=== PATIENT | male | born 1985 | race Caucasian/White ===

== ENCOUNTER 2017-08-03 10:01 | Inpatient (IN) | payer OTHER ==
[2017-08-03 10:05] VITALS: BMI 19.3
[2017-08-03 12:04] LABS: BASO % 0.2 % (0.0-2.0); HEMATOCRIT 45.5 % (35.0-51.0); LYMPH # 0.9 K/uL (1.0-4.3); LYMPH % 9.3 % (20.0-40.0); MEAN CELL VOLUME 88.8 fl (80.0-94.0); MEAN CORPUSCULAR HEMOGLOBIN 29.6 pg (27.0-31.0); MEAN CORPUSCULAR HGB CONC 33.3 g/dL (33.0-37.0); MEAN PLATELET VOLUME 9.4 fl (7.2-11.7); MONO # 0.6 K/uL (0.0-0.8); MONO % 6.2 % (0.0-10.0); NEUT # 7.8 K/uL (1.8-7.0); NEUT % 84.3 % (50.0-75.0); PLATELET COUNT 219 K/uL (130-400); RED CELL DISTRIBUTION WIDTH 12.8 % (11.5-14.5); WHITE BLOOD COUNT 9.3 K/uL (4.8-10.8)
[2017-08-03 12:14] LABS: ALCOHOL SERUM < 10 mg/dl (0-10); BLOOD UREA NITROGEN 16 mg/dl (9-20); CALCIUM 9.9 mg/dL (8.4-10.2); CARBON DIOXIDE 26 mmol/L (22-30); CHLORIDE 104 mmol/L (98-107); GFR AFRICAN-AMERICAN > 60; GLUCOSE,RANDOM 123 mg/dL (75-110); POTASSIUM 4.5 MMOL/L (3.6-5.0); SODIUM 144 mmol/l (132-148)
[2017-08-03 13:08] LABS: NEUTROPHIL 86 % (42-75); TOTAL CELLS COUNTED 100
--- NOTE | 2017-08-03 13:57 | ED PDOC ---
HPI: Altered Mental Status Time Seen by Provider: 08/03/17 10:35 Chief Complaint (Nursing): Altered Mental Status Chief Complaint (Provider): Altered Mental Status History Per: Patient History/Exam Limitations: None Onset/Duration Of Symptoms: Days (x2) Current Symptoms Are (Timing): Still Present Exacerbating Factor(s): Drug Use Pain Scale Rating Of: 0 Additional Complaint(s): Aurelio Maya is a 31 year old male, with a past medical history of schizophrenia and drug abuse, who was brought to the emergency department by EMS after he was found half naked on road, alert and oriented. Patient reports to have used Svetlana 2 days ago as well as cocaine. Patient states he wants to hurt himself but denies any injuries or falls. No further medical complaints. PMD: None provided. Past Medical History Reviewed: Historical Data, Nursing Documentation, Vital Signs Vital Signs: Last Vital Signs Temp 98 F 08/03/17 10:03 Pulse 78 08/03/17 13:26 Resp 19 08/03/17 13:26 BP 146/90 08/03/17 10:15 Pulse Ox 99 08/03/17 13:26 - Medical History PMH: Schizophrenia - Surgical History Surgical History: No Surg Hx - Family History Family History: States: Unknown Family Hx - Social History Current smoker - smoking cessation education provided: Yes (Heavy smoker >10 cigarettes daily) Alcohol: Occasional (few days a week) Drugs: Cocaine - Allergies Allergies/Adverse Reactions: Allergies Allergy/AdvReac Type Severity Reaction Status Date / Time No Known Allergies Allergy Verified 08/03/17 10:26 Review of Systems ROS Statement: Except As Marked, All Systems Reviewed And Found Negative Constitutional: Negative for: Other (trauma, falls) Neurological: Positive for: Altered Mental Status Physical Exam - Reviewed Nursing Documentation Reviewed: Yes Vital Signs Reviewed: Yes - Physical Exam Appears: Positive for: Non-toxic, No Acute Distress Head Exam: Positive for: ATRAUMATIC, NORMAL INSPECTION Skin: Positive for: Normal Color, Warm, Dry Eye Exam: Positive for: Normal appearance, EOMI, PERRL Neck: Positive for: Painless ROM, Supple Cardiovascular/Chest: Positive for: Regular Rate, Rhythm Respiratory: Positive for: Normal Breath Sounds. Negative for: Respiratory Distress Extremity: Positive for: Normal ROM. Negative for: Deformity, Swelling Neurologic/Psych: Positive for: Alert, Oriented, Mood/Affect (flat affect) Comments: Some superficial abrasions on face, and scratches on skin - Laboratory Results Result Diagrams: 08/03/17 11:58 08/04/17 05:00 - ECG O2 Sat by Pulse Oximetry: 99 (RA) Pulse Ox Interpretation: Normal Medical Decision Making Medical Decision Making: Initial Impression: substance abuse Initial Plan: --Head w/o contrast [CT] --Acetaminophen --Alcohol serum --Basic Metabolic Panel --Drug screen, urine --Salicylate --CBC w/ differential --1:1 Observation --Urinalysis --reevaluation 13:44 -Labs reviewed. 15:[address] FINDINGS: HEMORRHAGE: No intracranial hemorrhage. BRAIN: No mass effect or edema. No atrophy or chronic microvascular ischemic changes. VENTRICLES: Unremarkable. No hydrocephalus. CALVARIUM: Unremarkable. PARANASAL SINUSES: Unremarkable as visualized. No significant inflammatory changes. MASTOID AIR CELLS: Unremarkable as visualized. No inflammatory changes. OTHER FINDINGS: None. IMPRESSION: No acute intracranial abnormalities. No significant findings to account for the clinical presentation. Limitations of the current examination: Patient related motion induced artifact. 15:29 -Waiting on urine 16:08 Urine toxicology report states patient positive for cocaine metabols. Crisis team informed of results and patient is cleared to be evaluated by crisis team. 1700 Patient signed out to Dr. Payan pending crisis evaluation. Scribe Attestation: Documented by Rohan Tran, acting as a scribe for Chandni Boyd MD Provider Scribe Attestation: All medical record entries made by the Scribe were at my direction and personally dictated by me. I have reviewed the chart and agree that the record accurately reflects my personal performance of the history, physical exam, medical decision making, and the department course for this patient. I have also personally directed, reviewed, and agree with the discharge instructions and disposition. Disposition - Clinical Impression Clinical Impression: Polysubstance abuse, Substance-induced psychotic disorder, Tachycardia - Patient ED Disposition Is Patient to be Admitted: Transfer of Care - Disposition Disposition: Transfer of Care Disposition Time: 17:00 Condition: GUARDED Patient Signed Over To: Julissa Payan Handoff Comments: crisis evaluation
--- NOTE | 2017-08-03 15:09 | CT ---
PROCEDURE: CT HEAD WITHOUT CONTRAST. HISTORY: possible fall COMPARISON: None available. TECHNIQUE: Axial computed tomography images were obtained through the head/brain without intravenous contrast. Coronal and sagittal reconstructed images. Radiation dose: Total exam DLP = 1404.72 mGy-cm. This CT exam was performed using one or more of the following dose reduction techniques: Automated exposure control, adjustment of the mA and/or kV according to patient size, and/or use of iterative reconstruction technique. FINDINGS: HEMORRHAGE: No intracranial hemorrhage. BRAIN: No mass effect or edema. No atrophy or chronic microvascular ischemic changes. VENTRICLES: Unremarkable. No hydrocephalus. CALVARIUM: Unremarkable. PARANASAL SINUSES: Unremarkable as visualized. No significant inflammatory changes. MASTOID AIR CELLS: Unremarkable as visualized. No inflammatory changes. OTHER FINDINGS: None. IMPRESSION: No acute intracranial abnormalities. No significant findings to account for the clinical presentation. Limitations of the current examination: Patient related motion induced artifact.
[2017-08-03 15:58] LABS: RBC URINE 3 /hpf (0-3); URINE BILIRUBIN NEGATIVE (NEGATIVE); URINE BLOOD NEGATIVE (NEGATIVE); URINE COLOR YELLOW (YELLOW); URINE GLUCOSE (UA) NEG (Normal); URINE KETONE 20 mg/dL (NEGATIVE); URINE LEUKOCYTE ESTERASE NEG Leu/uL (Negative); URINE PROTEIN 100 mg/dL (NEGATIVE); URINE UROBILINOGEN 0.2-1.0 mg/dL (0.2-1.0); WBC URINE 1 /hpf (0-5)
--- NOTE | 2017-08-03 17:03 | ED PDOC ---
- Laboratory Results Result Diagrams: 08/03/17 11:58 08/04/17 05:00 - ECG O2 Sat by Pulse Oximetry: 99 (RA) Pulse Ox Interpretation: Normal Medical Decision Making Medical Decision Making: Receiving sign out: Patient signed out to me by Dr. Boyd at 1700 pending crisis evaluation. 1900 Evaluated by Crisis and given resources for addiction He converses lucidly and is alert and oriented x 2. However he continues to have tachycardia and involuntary movements of the face, as well as some pupil dilatation, possibly still intoxicated. Admits to feeling dehydrated. 2100 Pt still unsteady with intoxication. Persistently tachycardic. Continued IVF 2330 Persistent unsteady gait with tachycardia. DW Dr Milligan for hospitalization for prolonged intoxication and multisubstance abuse. Scribe Attestation: Documented by Teressa Han acting as a scribe for Julissa Payan MD. Provider Attestation: All medical record entries made by the Scribe were at my direction and personally dictated by me. I have reviewed the chart and agree that the record accurately reflects my personal performance of the history, physical exam, medical decision making, and the department course for this patient. I have also personally directed, reviewed, and agree with the discharge instructions and disposition. Disposition - Clinical Impression Clinical Impression: Polysubstance abuse, Substance-induced psychotic disorder, Tachycardia - POA Present On Arrival: Falls Or Trauma (reick) - Disposition Disposition: Hospitalized as Observation Patient Disposition Time: 23:30 Condition: GUARDED Progress Note - Review of Symptoms Events since last encounter: Time: 1900 Patient to be discharged home with diagnosis of substance abuse per Dr. Preciado.
[2017-08-03] MEDS ORDERED: DiphenhydrAMINE 50 mg/ml Inj IVP STA (19:11)
[2017-08-03] MEDS ORDERED: Sodium Chloride 0.9% 1,000 ML IV STA (19:11)
[2017-08-03] MEDS ORDERED: DiphenhydrAMINE 50 mg/ml Inj ONE (19:37)
--- NOTE | 2017-08-03 23:48 | CP.PCM.HP ---
History of Present Illness - History of Present Illness History of Present Illness: PCP: None Chief Complaint: AMS The patient is seen and examined in the ED HPI: The hx is obtained from the patient and the medical records. This is 31 years old male with past medical Hx of Schizophrenia and drug abuse, brought to the ED by the EMS after he was found half naked on the streets. In the ED he was alert, oriented by 2, referring that 2 days prior, he had taken Svetlana the drug, 'Methylenedioxymethamphetamine' and Cocaine. He also that he wanted to hurt himself. In the ED he was noted to have involuntary chewing and lip smacking with some distortions of the face. he was also having intermittent episodes of tachycardia then back to normal heart rate. He is being admitted for further observation and Telemetry monitoring. PMH: Schezinophrenia PSH: Tendon repair of the right hand SH: Cocaine and Svetlana use; Heavy smoker; Alcohol use FH: States: Unknown Family Hx Allergies: NKDA Medication: None Present on Admission - Present on Admission Any Indicators Present on Admission: No History of DVT/PE: No History of Uncontrolled Diabetes: No Urinary Catheter: No Decubitus Ulcer Present: No Review of Systems - Review of Systems Review of Systems: Review of systems is unobtainable because the patient still cannot remember exactly what happened. Past Patient History - Past Medical History & Family History Past Medical History?: No - Past Social History Smoking Status: Heavy Smoker > 10 Cigarettes Daily Chewing Tobacco Use: No Cigar Use: No Alcohol: Occasional (few days a week) Drugs: Cocaine - CARDIAC Hx Cardiac Disorders: No Hx Hypertension: No - PULMONARY Hx Respiratory Disorders: No Hx Tuberculosis: No - NEUROLOGICAL HX Cerebrovascular Accident: No Hx Seizures: No - HEENT Hx HEENT Problems: No - RENAL Hx Chronic Kidney Disease: No Hx Kidney Stones: No - ENDOCRINE/METABOLIC Hx Endocrine Disorders: No - HEMATOLOGICAL/ONCOLOGICAL Hx Blood Disorders: No Hx Cancer: No Hx Human Immunodeficiency Virus (HIV): No - INTEGUMENTARY Hx Dermatological Problems: No - MUSCULOSKELETAL/RHEUMATOLOGICAL Hx Musculoskeletal Disorders: No - GASTROINTESTINAL Hx Gastrointestinal Disorders: No - GENITOURINARY/GYNECOLOGICAL Hx Sexually Transmitted Disorders: No - PSYCHIATRIC Hx Schizophrenia: Yes - SURGICAL HISTORY Other/Comment: Surgery to the left hand with tendon repair - ANESTHESIA Hx Anesthesia: No Meds Allergies/Adverse Reactions: Allergies Allergy/AdvReac Type Severity Reaction Status Date / Time No Known Allergies Allergy Verified 08/03/17 10:26 Physical Exam - Constitutional Appears: No Acute Distress - Head Exam Head Exam: ATRAUMATIC, NORMAL INSPECTION, NORMOCEPHALIC - Eye Exam Eye Exam: Conjunctival injection, EOMI, PERRL Pupil Exam: NORMAL ACCOMODATION, PERRL - ENT Exam ENT Exam: Mucous Membranes Dry, Normal Exam, Normal External Ear Exam - Neck Exam Neck exam: Positive for: Full Rom. Negative for: Lymphadenopathy, Tenderness - Respiratory Exam Respiratory Exam: Clear to Auscultation Bilateral. absent: Rales, Rhonchi, Wheezes - Cardiovascular Exam Cardiovascular Exam: REGULAR RHYTHM, RRR, +S1, +S2 - GI/Abdominal Exam GI & Abdominal Exam: Normal Bowel Sounds, Soft. absent: Mass, Organomegaly, Tenderness - Rectal Exam Rectal Exam: Deferred - Extremities Exam Extremities exam: Positive for: calf tenderness. Negative for: joint swelling Additional comments: Bruises to both feet and distal legs - Back Exam Back exam: NORMAL INSPECTION. absent: CVA tenderness (L), CVA tenderness (R) - Neurological Exam Neurological exam: Alert, CN II-XII Intact, Reflexes Normal - Psychiatric Exam Psychiatric exam: Flat Affect - Skin Skin Exam: Dry, Intact, Normal Color, Warm Results - Vital Signs Recent Vital Signs: Last Vital Signs Temp 99.2 F 08/03/17 23:42 Pulse 89 08/03/17 23:42 Resp 26 H 08/03/17 23:42 BP 134/80 08/03/17 23:42 Pulse Ox 99 08/03/17 23:42 - Labs Result Diagrams: 08/03/17 11:58 08/03/17 23:26 Labs: Laboratory Results - last 24 hr 08/03/17 08/03/17 08/03/17 11:58 11:58 11:58 WBC 9.3 RBC 5.12 Hgb 15.1 Hct 45.5 MCV 88.8 MCH 29.6 MCHC 33.3 RDW 12.8 Plt Count 219 MPV 9.4 Neut % (Auto) 84.3 H Lymph % (Auto) 9.3 L [place] % (Auto) 6.2 Eos % (Auto) 0.0 Baso % (Auto) 0.2 Neut # 7.8 H Lymph # 0.9 L [place] # 0.6 Eos # 0.0 Baso # 0.0 Neutrophils % (Manual) 86 H Band Neutrophils % 1 Lymphocytes % (Manual) 8 L Monocytes % (Manual) 5 Platelet Estimate Normal RBC Morphology Normal Sodium 144 Potassium 4.5 Chloride 104 Carbon Dioxide 26 Anion Gap 19 BUN 16 Creatinine 0.9 Est GFR ( Amer) > 60 Est GFR (Non-Af Amer) > 60 Random Glucose 123 H Calcium 9.9 Urine Color Urine Clarity Urine pH Ur Specific [place] Urine Protein Urine Glucose (UA) Urine Ketones Urine Blood Urine Nitrate Urine Bilirubin Urine Urobilinogen Ur Leukocyte Esterase Urine RBC (Auto) Urine Microscopic WBC Salicylates < 1.0 Urine Opiates Screen Urine Methadone Screen Acetaminophen < 10.0 L Ur Barbiturates Screen Ur Phencyclidine Scrn Ur Amphetamines Screen U Benzodiazepines Scrn U Oth Cocaine Metabols U Cannabinoids Screen Alcohol, Quantitative < 10 08/03/17 08/03/17 13:52 14:52 WBC RBC Hgb Hct MCV MCH MCHC RDW Plt Count MPV Neut % (Auto) Lymph % (Auto) [place] % (Auto) Eos % (Auto) Baso % (Auto) Neut # Lymph # [place] # Eos # Baso # Neutrophils % (Manual) Band Neutrophils % Lymphocytes % (Manual) Monocytes % (Manual) Platelet Estimate RBC Morphology Sodium Potassium Chloride Carbon Dioxide Anion Gap BUN Creatinine Est GFR ( Amer) Est GFR (Non-Af Amer) Random Glucose Calcium Urine Color Yellow Urine Clarity Clear Urine pH 6.0 Ur Specific [place] 1.031 H Urine Protein 100 Urine Glucose (UA) Neg Urine Ketones 20 Urine Blood Negative Urine Nitrate Negative Urine Bilirubin Negative Urine Urobilinogen 0.2-1.0 Ur Leukocyte Esterase Neg Urine RBC (Auto) 3 Urine Microscopic WBC 1 Salicylates Urine Opiates Screen Negative Urine Methadone Screen Negative Acetaminophen Ur Barbiturates Screen Negative Ur Phencyclidine Scrn Negative Ur Amphetamines Screen Negative U Benzodiazepines Scrn Negative U Oth Cocaine Metabols Positive H U Cannabinoids Screen Negative Alcohol, Quantitative - Imaging and Cardiology CT scan - Head Additional comment: No Acute intracraneal abnormality Assessment & Plan - Assessment and Plan (Free Text) Assessment: #. AMS #. Polysubstance abuse #. Tachycardia #. Hypokalemia Plan: 31 years old male with past medical Hx of Schizophrenia and drug abuse, brought to the ED by the EMS after he was found half naked on the streets. In the ED he was alert, oriented by 2, referring that 2 days prior, he had taken Svetlana the drug, 'Methylenedioxymethamphetamine' and Cocaine. In The ED he had some Involuntary facial movenents and distortion. He was also having intermittent episodes of tachycardia. #. AMS secondary to Toxic Encephalopathy due to the Drug use - CT head negative for blood - Neuro checks q4H #. Polysubstance abuse - Ativan for Agitation #. Intermittent Tachycardia - Obsrve in telemetry - Cardiac Monitoring #. Hypokalemia - Repleat Potassium #. Stress Ulcer Prophylaxis with Pepcid #. DVT prophylaxis with Lovenox #. Code Status: Full - Date & Time Date: 08/03/17 Time: 23:47
[2017-08-04 00:12] LABS: ALB/GLOB RATIO 1.4 (1.0-2.1); ALKALINE PHOSPHATASE 64 U/L (38-126); ALT/SGPT 41 U/L (21-72); AST/SGOT 31 U/L (17-59); BILIRUBIN,TOTAL 0.6 mg/dl (0.2-1.3); BLOOD UREA NITROGEN 15 mg/dl (9-20); CALCIUM 8.8 mg/dL (8.4-10.2); CARBON DIOXIDE 28 mmol/L (22-30); CHLORIDE 106 mmol/L (98-107); GFR AFRICAN-AMERICAN > 60; GLUCOSE,RANDOM 156 mg/dL (75-110); POTASSIUM 3.4 MMOL/L (3.6-5.0); SODIUM 140 mmol/l (132-148); TOTAL PROTEIN 7.2 G/DL (6.3-8.2)
[2017-08-04] MEDS ORDERED: Multivitamin (MVI) 10 ML, Thiamine 100 MG in Dextrose 5%/0.45% NS 1,000 ML IV ONE (01:23)
[2017-08-04] MEDS ORDERED: Potassium Chloride 20 mEq ER Tab PO ONE (01:26)
[2017-08-04 06:40] LABS: BLOOD UREA NITROGEN 12 mg/dl (9-20); CALCIUM 8.6 mg/dL (8.4-10.2); CARBON DIOXIDE 21 mmol/L (22-30); CHLORIDE 108 mmol/L (98-107); GFR AFRICAN-AMERICAN > 60; GLUCOSE,RANDOM 102 mg/dL (75-110); POTASSIUM 4.2 MMOL/L (3.6-5.0); SODIUM 140 mmol/l (132-148)
[2017-08-04] MEDS: Enoxaparin 40 mg Syringe SC SCH (09:10)
--- NOTE | 2017-08-04 11:33 | CP.PCM.CON ---
History of Present Illness - History of Present Illness History of Present Illness: psychiatry consult requested, pt brought to ER by police as he was found on the street naked and exhibiting disorganized behavior, in ER pt was found tachycardiac and having abnormal facial movements so was admitted to telemetry for observation pt on evaluation not reliable in providing history as his thought process continues to be disorganized with thought blocking, and paranoid behavior pt on evaluation stated that he recently has been using cocaine cannabis, alcohol and Svetlana { amphetamine} almost daily but unable to specify the amounts indicated that he is depressed and having suicidal thoughts since 2016 when he broke up with his girfriend, pt stated he continues to have active suicidal thoughts, by cutting his wrist, reported one previous suicidal attempt by cutting his wrist at age [age], he was nivia in college and was admitted then to psychiatric hospital in [place], he denied any further psychiatric treatment or follow up pt has been in [place] between 2007 and 2015 as per his reporte and indicated that he suffers from insomnia and flash backs since his return Past Patient History - Past Medical History & Family History Past Medical History?: No - Past Social History Alcohol: Occasional (few days a week) Drugs: Cocaine - CARDIAC Hx Cardiac Disorders: No Hx Hypertension: No - PULMONARY Hx Respiratory Disorders: No Hx Tuberculosis: No - NEUROLOGICAL HX Cerebrovascular Accident: No Hx Seizures: No - HEENT Hx HEENT Problems: No - RENAL Hx Chronic Kidney Disease: No Hx Kidney Stones: No - ENDOCRINE/METABOLIC Hx Endocrine Disorders: No - HEMATOLOGICAL/ONCOLOGICAL Hx Blood Disorders: No Hx Cancer: No Hx Human Immunodeficiency Virus (HIV): No - INTEGUMENTARY Hx Dermatological Problems: No - MUSCULOSKELETAL/RHEUMATOLOGICAL Hx Musculoskeletal Disorders: No Hx Falls: Yes - GASTROINTESTINAL Hx Gastrointestinal Disorders: No - GENITOURINARY/GYNECOLOGICAL Hx Sexually Transmitted Disorders: No - PSYCHIATRIC Hx Schizophrenia: Yes - SURGICAL HISTORY Other/Comment: Surgery to the left hand with tendon repair - ANESTHESIA Hx Anesthesia: No Hx Anesthesia Reactions: No Hx Malignant Hyperthermia: No Has any member of the family had a problem w/ anesthesia?: No Meds Allergies/Adverse Reactions: Allergies Allergy/AdvReac Type Severity Reaction Status Date / Time No Known Allergies Allergy Verified 08/03/17 10:26 - Medications Medications: Current Medications Enoxaparin Sodium (Lovenox) 40 mg SC DAILY IHSAN PRN Reason: Protocol Last Admin: 08/04/17 09:10 Dose: 40 mg Lorazepam (Ativan) 0.5 mg IVP Q3H PRN PRN Reason: Agitation Physical Exam - Psychiatric Exam Additional comments: pt on evaluation dressed in a hospital gown, anxious, restless, hyperactive, guarded , paranoid, partial eye contact, speech not goal directed and underproductive , disorganized thought process, paranoid, presenting with thought blocking, appears internally preoccupied but denied command hallucinations, when asked about suicidae pt reported that he took as much as he can of cocine and MOLY in atrial to end it all, he does not remember how he ended up in the hospital continues to have suicidal thoughts with plan to cut his wrist, impaired insight and judgement, awake at current mental status oriented to person only Results - Vital Signs Recent Vital Signs: Last Vital Signs Temp 98.3 F 08/04/17 07:55 Pulse 82 08/04/17 07:55 Resp 18 08/04/17 07:55 BP 130/71 08/04/17 07:55 Pulse Ox 99 08/04/17 11:04 - Labs Result Diagrams: 08/03/17 11:58 08/04/17 05:00 Labs: Laboratory Results - last 24 hr 08/03/17 08/03/17 08/03/17 11:58 11:58 11:58 WBC 9.3 RBC 5.12 Hgb 15.1 Hct 45.5 MCV 88.8 MCH 29.6 MCHC 33.3 RDW 12.8 Plt Count 219 MPV 9.4 Neut % (Auto) 84.3 H Lymph % (Auto) 9.3 L [place] % (Auto) 6.2 Eos % (Auto) 0.0 Baso % (Auto) 0.2 Neut # 7.8 H Lymph # 0.9 L [place] # 0.6 Eos # 0.0 Baso # 0.0 Neutrophils % (Manual) 86 H Band Neutrophils % 1 Lymphocytes % (Manual) 8 L Monocytes % (Manual) 5 Platelet Estimate Normal RBC Morphology Normal Sodium 144 Potassium 4.5 Chloride 104 Carbon Dioxide 26 Anion Gap 19 BUN 16 Creatinine 0.9 Est GFR ( Amer) > 60 Est GFR (Non-Af Amer) > 60 Random Glucose 123 H Calcium 9.9 Phosphorus Magnesium Total Bilirubin AST ALT Alkaline Phosphatase Total Creatine Kinase Total Protein Albumin Globulin Albumin/Globulin Ratio Urine Color Urine Clarity Urine pH Ur Specific [place] Urine Protein Urine Glucose (UA) Urine Ketones Urine Blood Urine Nitrate Urine Bilirubin Urine Urobilinogen Ur Leukocyte Esterase Urine RBC (Auto) Urine Microscopic WBC Salicylates < 1.0 Urine Opiates Screen Urine Methadone Screen Acetaminophen < 10.0 L Ur Barbiturates Screen Ur Phencyclidine Scrn Ur Amphetamines Screen U Benzodiazepines Scrn U Oth Cocaine Metabols U Cannabinoids Screen Alcohol, Quantitative < 10 08/03/17 08/03/17 08/03/17 13:52 14:52 23:26 WBC RBC Hgb Hct MCV MCH MCHC RDW Plt Count MPV Neut % (Auto) Lymph % (Auto) [place] % (Auto) Eos % (Auto) Baso % (Auto) Neut # Lymph # [place] # Eos # Baso # Neutrophils % (Manual) Band Neutrophils % Lymphocytes % (Manual) Monocytes % (Manual) Platelet Estimate RBC Morphology Sodium 140 Potassium 3.4 L Chloride 106 Carbon Dioxide 28 Anion Gap 9 L BUN 15 Creatinine 0.9 Est GFR ( Amer) > 60 Est GFR (Non-Af Amer) > 60 Random Glucose 156 H Calcium 8.8 Phosphorus 3.0 Magnesium 2.0 Total Bilirubin 0.6 AST 31 ALT 41 Alkaline Phosphatase 64 Total Creatine Kinase 213 H Total Protein 7.2 Albumin 4.2 Globulin 3.0 Albumin/Globulin Ratio 1.4 Urine Color Yellow Urine Clarity Clear Urine pH 6.0 Ur Specific [place] 1.031 H Urine Protein 100 Urine Glucose (UA) Neg Urine Ketones 20 Urine Blood Negative Urine Nitrate Negative Urine Bilirubin Negative Urine Urobilinogen 0.2-1.0 Ur Leukocyte Esterase Neg Urine RBC (Auto) 3 Urine Microscopic WBC 1 Salicylates Urine Opiates Screen Negative Urine Methadone Screen Negative Acetaminophen Ur Barbiturates Screen Negative Ur Phencyclidine Scrn Negative Ur Amphetamines Screen Negative U Benzodiazepines Scrn Negative U Oth Cocaine Metabols Positive H U Cannabinoids Screen Negative Alcohol, Quantitative 08/04/17 05:00 WBC RBC Hgb Hct MCV MCH MCHC RDW Plt Count MPV Neut % (Auto) Lymph % (Auto) [place] % (Auto) Eos % (Auto) Baso % (Auto) Neut # Lymph # [place] # Eos # Baso # Neutrophils % (Manual) Band Neutrophils % Lymphocytes % (Manual) Monocytes % (Manual) Platelet Estimate RBC Morphology Sodium 140 Potassium 4.2 Chloride 108 H Carbon Dioxide 21 L Anion Gap 15 BUN 12 Creatinine 0.8 Est GFR ( Amer) > 60 Est GFR (Non-Af Amer) > 60 Random Glucose 102 Calcium 8.6 Phosphorus Magnesium Total Bilirubin AST ALT Alkaline Phosphatase Total Creatine Kinase Total Protein Albumin Globulin Albumin/Globulin Ratio Urine Color Urine Clarity Urine pH Ur Specific [place] Urine Protein Urine Glucose (UA) Urine Ketones Urine Blood Urine Nitrate Urine Bilirubin Urine Urobilinogen Ur Leukocyte Esterase Urine RBC (Auto) Urine Microscopic WBC Salicylates Urine Opiates Screen Urine Methadone Screen Acetaminophen Ur Barbiturates Screen Ur Phencyclidine Scrn Ur Amphetamines Screen U Benzodiazepines Scrn U Oth Cocaine Metabols U Cannabinoids Screen Alcohol, Quantitative Assessment & Plan - Assessment and Plan (Free Text) 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
--- NOTE | 2017-08-04 18:01 | CP.PCM.PN ---
Subjective - Date & Time of Evaluation Date of Evaluation: 08/04/17 Time of Evaluation: 10:00 - Subjective Subjective: Patient seen and examined bedside. Answering questions. AAOx3 . Gives history of drug abuse Svetlana and Cocaine almost daily , as much as he can get his hands on .Admits to feeling depressed and suicidal at times. Denies any pain or discomfort Hemodynamically stable with so me repetitive lip chewing movements Objective - Vital Signs/Intake and Output Vital Signs (last 24 hours): Temp Pulse Resp BP Pulse Ox 98.4 F 78 14 137/73 97 08/04/17 16:10 08/04/17 16:10 08/04/17 16:10 08/04/17 16:10 08/04/17 16:10 - Medications Medications: Current Medications Enoxaparin Sodium (Lovenox) 40 mg SC DAILY IHSAN PRN Reason: Protocol Last Admin: 08/04/17 09:10 Dose: 40 mg Lorazepam (Ativan) 0.5 mg IVP Q3H PRN PRN Reason: Agitation Risperidone (Risperdal Tab) 1 mg PO DAILY IHSAN - Labs Labs: 08/03/17 11:58 08/04/17 05:00 - Constitutional Appears: Non-toxic, No Acute Distress - Head Exam Head Exam: NORMAL INSPECTION, NORMOCEPHALIC Additional comments: left just below eyebrow abrasion - Eye Exam Eye Exam: EOMI, Normal appearance, PERRL Pupil Exam: NORMAL ACCOMODATION - ENT Exam ENT Exam: Mucous Membranes Moist, Normal Exam - Neck Exam Neck Exam: Full ROM, Normal Inspection - Respiratory Exam Respiratory Exam: Clear to Ausculation Bilateral, NORMAL BREATHING PATTERN. absent: Rales, Rhonchi, Wheezes, Respiratory Distress - Cardiovascular Exam Cardiovascular Exam: REGULAR RHYTHM, RRR, +S1, +S2. absent: JVD - GI/Abdominal Exam GI & Abdominal Exam: Soft, Normal Bowel Sounds. absent: Distended, Guarding, Tenderness, Rebound - Rectal Exam Rectal Exam: Deferred - Extremities Exam Extremities Exam: Full ROM, Normal Capillary Refill, Normal Inspection. absent : Pedal Edema - Back Exam Back Exam: NORMAL INSPECTION - Neurological Exam Neurological Exam: Alert, Awake, Oriented x3 - Psychiatric Exam Psychiatric exam: Anxious, Flat Affect - Skin Skin Exam: Dry, Normal Color Additional comments: left leg below knee skin abrasions Assessment and Plan - Assessment and Plan (Free Text) Assessment: 31 years old male with past medical Hx of Schizophrenia and drug abuse, brought to the ED by the EMS after he was found half naked on the streets. In the ED he was alert, oriented x2 ,referring that 2 days prior, he had taken Svetlana the drug , 'Methylenedioxymethamphetamine' and Cocaine. In The ED he had some Involuntary facial movements and distortion. He was also having intermittent episodes of tachycardia.He admitted t being suicidal . Patient was placed under observation in telemetry , started on IVF and placed on 1 : 1 for safety. Psychiatry was consulted. 1. AMS secondary to Toxic Encephalopathy due to the Drug use CT head negative for acute pathology Drug screen positive for cocaine and amphetamine at present AAOx3 hemodynamically stable, afebrile He is medically stable for psychiatric admision 2.Polysubstance abuse Svetlana and cocaine admits to having a problem and would like help psych consulted Ativan for Agitation patient will need to be stabilized psychiatrically Started Risperdal as per psych recommendations Referred for involuntary admission 3. Suicidal/ psychotic psych consulted recommended involuntary psych admission 4. Intermittent Tachycardia Observed in telemetry no arrythmisa resolved 5. Hypokalemia Repleted Potassium 6. Stress Ulcer Prophylaxis Pepcid 7. DVT prophylaxis Lovenox
[2017-08-05 05:31] LABS: HEMATOCRIT 40.3 % (35.0-51.0); MEAN CORPUSCULAR HEMOGLOBIN 29.7 pg (27.0-31.0); MEAN CORPUSCULAR HGB CONC 33.4 g/dL (33.0-37.0); RED CELL DISTRIBUTION WIDTH 12.6 % (11.5-14.5)
[2017-08-05 06:27] LABS: BLOOD UREA NITROGEN 13 mg/dl (9-20); CALCIUM 9.2 mg/dL (8.4-10.2); CARBON DIOXIDE 25 mmol/L (22-30); CHLORIDE 106 mmol/L (98-107); GFR AFRICAN-AMERICAN > 60; GLUCOSE,RANDOM 96 mg/dL (75-110); POTASSIUM 3.9 MMOL/L (3.6-5.0); SODIUM 141 mmol/l (132-148)
--- NOTE | 2017-08-05 08:24 | RAD ---
HISTORY: Pre transfer to [facility] [place] Psych unit COMPARISON: No prior. FINDINGS: LUNGS: No active pulmonary disease. PLEURA: No significant pleural effusion identified, no pneumothorax apparent. CARDIOVASCULAR: Normal. OSSEOUS STRUCTURES: No significant abnormalities. VISUALIZED UPPER ABDOMEN: Normal. OTHER FINDINGS: None. IMPRESSION: No acute cardiopulmonary disease appreciated.
[2017-08-05] MEDS: Enoxaparin 40 mg Syringe SC SCH (09:51)
--- NOTE | 2017-08-05 10:46 | CP.PCM.PN ---
Subjective - Date & Time of Evaluation Date of Evaluation: 08/05/17 Time of Evaluation: 10:46 - Subjective Subjective: pt mother at bedside states he is more lucid and coherent than yesterday no abnormal movements of limbs or mouth on exam HD stable NAD awaiting bed at [facility] [place] Objective - Vital Signs/Intake and Output Vital Signs (last 24 hours): Temp Pulse Resp BP Pulse Ox 97.2 F L 62 18 107/71 96 08/05/17 08:00 08/05/17 08:00 08/05/17 08:00 08/05/17 08:00 08/05/17 08:00 - Medications Medications: Current Medications Enoxaparin Sodium (Lovenox) 40 mg SC DAILY IHSAN PRN Reason: Protocol Last Admin: 08/05/17 09:51 Dose: 40 mg Lorazepam (Ativan) 0.5 mg IVP Q3H PRN PRN Reason: Agitation Risperidone (Risperdal Tab) 1 mg PO DAILY IHSAN Last Admin: 08/05/17 09:51 Dose: 1 mg - Labs Labs: 08/05/17 04:30 08/05/17 04:30 - Constitutional Appears: Non-toxic, No Acute Distress - Head Exam Head Exam: ATRAUMATIC, NORMOCEPHALIC - Eye Exam Eye Exam: EOMI, Normal appearance, PERRL - ENT Exam ENT Exam: Mucous Membranes Moist, Normal Oropharynx - Neck Exam Neck Exam: Full ROM, Normal Inspection - Respiratory Exam Respiratory Exam: Clear to Ausculation Bilateral, NORMAL BREATHING PATTERN - Cardiovascular Exam Cardiovascular Exam: RRR, +S1, +S2 - GI/Abdominal Exam GI & Abdominal Exam: Soft, Normal Bowel Sounds - Extremities Exam Extremities Exam: Normal Capillary Refill. absent: Calf Tenderness - Back Exam Back Exam: absent: CVA tenderness (L), CVA tenderness (R) - Neurological Exam Neurological Exam: Alert, Awake - Psychiatric Exam Psychiatric exam: Normal Affect, Normal Mood - Skin Skin Exam: Dry, Warm Assessment and Plan - Assessment and Plan (Free Text) Plan: 31 years old male with past medical Hx of Schizophrenia and drug abuse, brought to the ED by the EMS after he was found half naked on the streets. In the ED he was alert, oriented x2 ,referring that 2 days prior, he had taken Svetlana the drug , 'Methylenedioxymethamphetamine' and Cocaine. In The ED he had some Involuntary facial movements and distortion. He was also having intermittent episodes of tachycardia.He admitted t being suicidal . Patient was placed under observation in telemetry , started on IVF and placed on 1 : 1 for safety. Psychiatry was consulted. Awaiting bed at [facility] for involuntary admission 1. AMS secondary to Toxic Encephalopathy due to the Drug use CT head negative for acute pathology Drug screen positive for cocaine and amphetamine at present AAOx3 hemodynamically stable, afebrile He is medically stable for psychiatric admision 2.Polysubstance abuse Svetlana and cocaine admits to having a problem and would like help [facility] patient will need to be stabilized psychiatrically Started Risperdal as per psych recommendations Referred for involuntary admission 3. Suicidal/ psychotic psych consulted recommended involuntary psych admission 4. Intermittent Tachycardia Observed in telemetry no arrythmisa resolved 5. Hypokalemia Repleted Potassium 6. Stress Ulcer Prophylaxis Pepcid 7. DVT prophylaxis Lovenox
--- NOTE | 2017-08-05 18:21 | CARD ---
APPROVED REPORT EKG Measurement Heart [id number] <Conclusion> Normal sinus rhythm Early repolarization Normal ECG
[2017-08-06 00:30] VITALS: BP 111/66; PULSE 60; RESP 18; TEMP 97.4; O2SAT 99
--- NOTE | 2017-08-06 08:20 | CP.PCM.DIS ---
Provider - Provider Date of Admission: 08/05/17 14:14 Attending physician: Prashant Milligan Time Spent in preparation of Discharge (in minutes): 30 Diagnosis - Discharge Diagnosis (1) Polysubstance abuse Status: Acute Hospital Course - Lab Results Lab Results: Most Recent Lab Values WBC 7.0 K/uL (4.8-10.8) 08/05/17 04:30 RBC 4.53 Mil/uL (4.40-5.90) 08/05/17 04:30 Hgb 13.4 g/dL (12.0-18.0) 08/05/17 04:30 Hct 40.3 % (35.0-51.0) 08/05/17 04:30 MCV 89.0 fl (80.0-94.0) 08/05/17 04:30 MCH 29.7 pg (27.0-31.0) 08/05/17 04:30 MCHC 33.4 g/dL (33.0-37.0) 08/05/17 04:30 RDW 12.6 % (11.5-14.5) 08/05/17 04:30 Plt Count 180 K/uL (130-400) 08/05/17 04:30 MPV 9.4 fl (7.2-11.7) 08/03/17 11:58 Neut % (Auto) 84.3 % (50.0-75.0) H 08/03/17 11:58 Lymph % (Auto) 9.3 % (20.0-40.0) L 08/03/17 11:58 [place] % (Auto) 6.2 % (0.0-10.0) 08/03/17 11:58 Eos % (Auto) 0.0 % (0.0-4.0) 08/03/17 11:58 Baso % (Auto) 0.2 % (0.0-2.0) 08/03/17 11:58 Neut # 7.8 K/uL (1.8-7.0) H 08/03/17 11:58 Lymph # 0.9 K/uL (1.0-4.3) L 08/03/17 11:58 [place] # 0.6 K/uL (0.0-0.8) 08/03/17 11:58 Eos # 0.0 K/uL (0.0-0.7) 08/03/17 11:58 Baso # 0.0 K/uL (0.0-0.2) 08/03/17 11:58 Neutrophils % (Manual) 86 % (42-75) H 08/03/17 11:58 Band Neutrophils % 1 % (0-2) 08/03/17 11:58 Lymphocytes % (Manual) 8 % (20-50) L 08/03/17 11:58 Monocytes % (Manual) 5 % (0-10) 08/03/17 11:58 Platelet Estimate Normal (NORMAL) 08/03/17 11:58 RBC Morphology Normal (NORMAL) 08/03/17 11:58 Sodium 141 mmol/l (132-148) 08/05/17 04:30 Potassium 3.9 MMOL/L (3.6-5.0) 08/05/17 04:30 Chloride 106 mmol/L (98-107) 08/05/17 04:30 Carbon Dioxide 25 mmol/L (22-30) 08/05/17 04:30 Anion Gap 14 (10-20) 08/05/17 04:30 BUN 13 mg/dl (9-20) 08/05/17 04:30 Creatinine 0.8 mg/dl (0.8-1.5) 08/05/17 04:30 Est GFR ( Amer) > 60 08/05/17 04:30 Est GFR (Non-Af Amer) > 60 08/05/17 04:30 Random Glucose 96 mg/dL (75-110) 08/05/17 04:30 Calcium 9.2 mg/dL (8.4-10.2) 08/05/17 04:30 Phosphorus 3.0 mg/dl (2.5-4.5) 08/03/17 23:26 Magnesium 2.0 MG/DL (1.6-2.3) 08/03/17 23:26 Total Bilirubin 0.6 mg/dl (0.2-1.3) 08/03/17 23:26 AST 31 U/L (17-59) 08/03/17 23:26 ALT 41 U/L (21-72) 08/03/17 23:26 Alkaline Phosphatase 64 U/L (38-126) 08/03/17 23:26 Total Creatine Kinase 213 U/L (55-170) H 08/03/17 23:26 Total Protein 7.2 G/DL (6.3-8.2) 08/03/17 23:26 Albumin 4.2 g/dL (3.5-5.0) 08/03/17 23:26 Globulin 3.0 gm/dL (2.2-3.9) 08/03/17 23:26 Albumin/Globulin Ratio 1.4 (1.0-2.1) 08/03/17 23:26 Urine Color Yellow (YELLOW) 08/03/17 14:52 Urine Clarity Clear (Clear) 08/03/17 14:52 Urine pH 6.0 (5.0-8.0) 08/03/17 14:52 Ur Specific [place] 1.031 (1.003-1.030) H 08/03/17 14:52 Urine Protein 100 mg/dL (NEGATIVE) 08/03/17 14:52 Urine Glucose (UA) Neg mg/dL (Normal) 08/03/17 14:52 Urine Ketones 20 mg/dL (NEGATIVE) 08/03/17 14:52 Urine Blood Negative (NEGATIVE) 08/03/17 14:52 Urine Nitrate Negative (NEGATIVE) 08/03/17 14:52 Urine Bilirubin Negative (NEGATIVE) 08/03/17 14:52 Urine Urobilinogen 0.2-1.0 mg/dL (0.2-1.0) 08/03/17 14:52 Ur Leukocyte Esterase Neg Alivia/uL (Negative) 08/03/17 14:52 Urine RBC (Auto) 3 /hpf (0-3) 08/03/17 14:52 Urine Microscopic WBC 1 /hpf (0-5) 08/03/17 14:52 Salicylates < 1.0 mg/dl 08/03/17 11:58 Urine Opiates Screen Negative (NEGATIVE) 08/03/17 13:52 Urine Methadone Screen Negative (NEGATIVE) 08/03/17 13:52 Acetaminophen < 10.0 ug/ml (10.0-30.0) L 08/03/17 11:58 Ur Barbiturates Screen Negative (NEGATIVE) 08/03/17 13:52 Ur Phencyclidine Scrn Negative (NEGATIVE) 08/03/17 13:52 Ur Amphetamines Screen Negative (NEGATIVE) 08/03/17 13:52 U Benzodiazepines Scrn Negative (NEGATIVE) 08/03/17 13:52 U Oth Cocaine Metabols Positive (NEGATIVE) H 08/03/17 13:52 U Cannabinoids Screen Negative (NEGATIVE) 08/03/17 13:52 Alcohol, Quantitative < 10 mg/dl (0-10) 08/03/17 11:58 - Hospital Course Hospital Course: 31 years old male with past medical Hx of Schizophrenia and drug abuse, brought to the ED by the EMS after he was found half naked on the streets. In the ED he was alert, oriented x2 ,referring that 2 days prior, he had taken Svetlana the drug , 'Methylenedioxymethamphetamine' and Cocaine. In The ED he had some Involuntary facial movements and distortion. He was also having intermittent episodes of tachycardia.He admitted t being suicidal . Patient was placed under observation in telemetry , started on IVF and placed on 1 : 1 for safety. Psychiatry was consulted. TRANSFER TO [facility] [place] for involuntary admission 1. AMS secondary to Toxic Encephalopathy due to the Drug use CT head negative for acute pathology Drug screen positive for cocaine and amphetamine at present AAOx3 hemodynamically stable, afebrile He is medically stable for psychiatric admision 2.Polysubstance abuse Svetlana and cocaine admits to having a problem and would like help [facility] will need to be stabilized psychiatrically Started Risperdal as per psych recommendations Referred for involuntary admission 3. Suicidal/ psychotic psych consulted recommended involuntary psych admission 4. Intermittent Tachycardia Observed in telemetry no arrythmisa resolved 5. Hypokalemia Repleted Potassium 6. Stress Ulcer Prophylaxis Pepcid 7. DVT prophylaxis Lovenox Discharge Exam - Head Exam Additional comments: patient left overnight, no PE completed Discharge Plan - Follow Up Plan Condition: GUARDED Disposition: DISCHARGE TO PSYCH HOSPITAL Instructions: Cardioversion (DC)
== END 2017-08-06 01:20 | DRG 896 ==
LOC: H.ER 10:01 → H.ERHOLD 23:29 → H.TEL 08-04 01:05 → OBSVTOIN 08-05 14:14
PROVIDERS: ADMIT Internal Medicine; ATTEND Internal Medicine
DX: F14.159 Cocaine abuse with cocaine-induced psychotic disorder, unspecified (principal); G92 Toxic encephalopathy; F20.9 Schizophrenia, unspecified; F15.959 Other stimulant use, unspecified with stimulant-induced psychotic disorder, unspecified; F17.210 Nicotine dependence, cigarettes, uncomplicated; F43.10 Post-traumatic stress disorder, unspecified; G47.00 Insomnia, unspecified; R00.0 Tachycardia, unspecified; R26.81 Unsteadiness on feet; E86.0 Dehydration; E87.6 Hypokalemia